=== PATIENT | female | born 1990 | race Caucasian/White ===

== ENCOUNTER 2020-10-16 08:59 | Day surgery (SDC) | payer MEDICAID ==
[~2020-10-16 08:59] MED LIST: Lactated Ringers 1,000 ML IV SCH; Lidocaine 1%/Sod Bicarbonate in NS 8.4% 1 ML Syringe IDERM PRN; Sodium Chloride 0.9% 10 ML Syringe FLUSH PRN
--- NOTE | 2020-10-16 09:41 | PCM.PREANE ---
Preanesthetic Assessment - Anesthesia/Transfusion/Family Hx Anesthesia History: Prior Anesthesia Without Reaction Family History of Anesthesia Reaction: No Transfusion History: No Prior Transfusion(s) - Review of Systems General: No Symptoms Pulmonary: No Symptoms Cardiovascular: Dyspnea on Exertion Gastrointestinal: Abdominal Pain (cramping) Neurological: No Symptoms Other: Reports: Neck Pain - Physical Assessment NPO Status Date: 10/15/20 NPO Status Time: 00:00 Height: 1.75 m Weight: 102.7 kg ASA Class: 3 Mental Status: Alert & Oriented x3 Airway Class: Mallampati = 2 Dentition: Reports: Edentulous Thyro-Mental Finger Breadths: 2 Mouth Opening Finger Breadths: 2 ROM/Head Extension: Full Lungs: Clear to Auscultation, Normal Respiratory Effort, Decreased Breath Sounds Cardiovascular: Regular Rate, Regular Rhythm - Lab Values: Laboratory Last Values WBC 7.13 K/mm3 (3.98-10.04) 10/16/20 09:13 RBC 4.69 M/mm3 (3.98-5.22) 10/16/20 09:13 Hgb 12.6 gm/dl (11.2-15.7) 10/16/20 09:13 Hct 39.2 % (34.1-44.9) 10/16/20 09:13 MCV 83.6 fl (79.4-94.8) 10/16/20 09:13 MCH 26.9 pg (25.6-32.2) 10/16/20 09:13 MCHC 32.1 g/dl (32.2-35.5) L 10/16/20 09:13 RDW Std Deviation 47.4 fL (36.4-46.3) H 10/16/20 09:13 Plt Count 313 K/mm3 (182-369) 10/16/20 09:13 MPV 12.0 fl (9.4-12.3) 10/16/20 09:13 Neut % (Auto) 59.4 % (34.0-71.1) 10/16/20 09:13 Lymph % (Auto) 32.1 % (19.3-51.7) 10/16/20 09:13 [place] % (Auto) 8.1 % (4.7-12.5) 10/16/20 09:13 Eos % (Auto) 0 (0.7-5.8) L 10/16/20 09:13 Baso % (Auto) 0.3 % (0.1-1.2) 10/16/20 09:13 Neut # (Auto) 4.23 K/mm3 (1.56-6.13) 10/16/20 09:13 Lymph # (Auto) 2.29 K/mm3 (1.18-3.74) 10/16/20 09:13 [place] # (Auto) 0.58 K/mm3 (0.24-0.36) H 10/16/20 09:13 Eos # (Auto) 0.00 K/mm3 (0.04-0.36) L 10/16/20 09:13 Baso # (Auto) 0.02 K/mm3 (0.01-0.08) 10/16/20 09:13 - Allergies Allergies/Adverse Reactions: Allergies Allergy/AdvReac Type Severity Reaction Status Date / Time codeine Allergy Vomiting Verified 10/15/20 16:42 nitrofurantoin Allergy Rash Verified 10/15/20 16:42 [From Macrobid] - Anesthesia Plan Pre-Op Medication Ordered: None - Acknowledgements Anesthesia Type Planned: General Anesthesia Pt an Appropriate Candidate for the Planned Anesthesia: Yes Alternatives and Risks of Anesthesia Discussed w Pt/Guardian: Yes Pt/Guardian Understands and Agrees with Anesthesia Plan: Yes PreAnesthesia Questionnaire HEENT History: Reports: None Cardiovascular History: Reports: None Respiratory History: Reports: None Gastrointestinal History: Reports: GERD, Irritable Bowel Syndrome 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: Renal Calculus, 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: , Other (See Below) Other OB/BYN History: menorrhagia, colposcopy Musculoskeletal History: Reports: None Neurological History: Reports: None Psychiatric History: Reports: Addiction, Depression, Panic Attack, PTSD Endocrine/Metabolic History: Reports: None Hematologic History: Reports: Anemia, Iron Deficiency Immunologic History: Reports: None Oncologic (Cancer) History: Reports: None Dermatologic History: Reports: Other (See Below) Other Dermatologic History: skin lesion - Past Surgical History Head Surgeries/Procedures: Reports: None HEENT Surgical History: Reports: None Cardiovascular Surgical History: Reports: None Respiratory Surgical History: Reports: None GI Surgical History: Reports: None Female Surgical History: Reports: Section, Tubal Ligation Endocrine Surgical History: Reports: None Neurological Surgical History: Reports: None Musculoskeletal Surgical History: Reports: None Oncologic Surgical History: Reports: None - SUBSTANCE USE Tobacco Use Status *Q: Current Every Day Tobacco User Tobacco Use Within Last Twelve Months: Cigarettes Second Hand Smoke Exposure: Yes Days Per Week of Alcohol Use: 1 Number of Drinks Per Day: 0 Total Drinks Per Week: 0 Recreational Drug Use History: No - HOME MEDS Home Medications: Home Meds ALPRAZolam [Xanax] 0.25 mg PO TID PRN 10/15/20 [History] OLANZapine [ZyPREXA] 5 mg PO BEDTIME 10/15/20 [History] Pantoprazole Sodium [Protonix] 40 mg PO DAILY 10/15/20 [History] Venlafaxine HCl [Venlafaxine HCl ER] 225 mg PO DAILY 10/15/20 [History] busPIRone [Buspar] 20 mg PO TID 10/15/20 [History] hydrOXYzine HCL [hydrOXYzine] 25 mg PO DAILY PRN 10/15/20 [History] - CURRENT (IN HOUSE) MEDS Current Meds: Current Medications Lactated Ringer's (Ringers, Lactated) 1,000 mls @ 125 mls/hr IV ASDIRECTED ZAHIDA Stop: 10/16/20 23:00 Lidocaine/Sodium Bicarbonate (Buffered Lidocaine 1% In Ns 8.4%) 0.25 ml IDERM ONETIME PRN PRN Reason: Prior to IV Start Stop: 10/16/20 18:00 Sodium Chloride (Saline Flush) 10 ml FLUSH ASDIRECTED PRN PRN Reason: Keep Vein Open Stop: 10/16/20 18:00
[2020-10-16] MEDS ORDERED: Lidocaine 1% with EPINEPHrine 1:100,000 20 ML MDV ONE (09:43)
[2020-10-16] MEDS ORDERED: Sodium Chloride 0.9% 50 ML SDV ONE (09:43)
[2020-10-16] MEDS ORDERED: Ondansetron 4 MG/2 ML SDV ONE (09:48)
[2020-10-16] MEDS ORDERED: Rocuronium 50 MG/5 ML Vial ONE (09:48)
[2020-10-16] MEDS ORDERED: Propofol 200 MG/20 ML SDV ONE (09:48)
[2020-10-16] MEDS ORDERED: Ketorolac 30 MG/ML SDV ONE (09:49)
[2020-10-16] MEDS ORDERED: Lidocaine 1% 4 ML ONE (09:49)
[2020-10-16] MEDS ORDERED: ceFAZolin 1 GM Vial ONE (09:49)
[2020-10-16] MEDS ORDERED: Midazolam 1 MG/ML 2 ML SDV ONE (09:49)
[2020-10-16] MEDS ORDERED: fentaNYL 250 MCG/5 ML SDV ONE (09:49)
[2020-10-16] MEDS ORDERED: Lactated Ringers 1,000 ML ONE (10:22)
[2020-10-16] MEDS ORDERED: HYDROmorphone 0.5 MG/0.5 ML Syringe ONE (10:27)
--- NOTE | 2020-10-16 10:55 | PCM.OPNOTE ---
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 SCS in place and functioning prior to surgery, 2 grams Ancef given IV. Time out performed confirming name, and procedure. Prepared with betadine solution and draped in sterile fashion. Cervix normal appearing, no change with acetic acid, or Lugol's solution. 0 vicryl sutured placed at 0900 and 0300. Injected lidocaine 0.25 % with epi multiple confluent areas, 8 ml. LEEP performed (conization) and specimen marked with suture at 1200. ECC performed and all tisue sent to pathology. Electrocoagulation of LEEP site completed.Counts correct and patient transported to PACU in satisfactory condition.
[2020-10-16] MEDS ORDERED: fentaNYL 100 MCG/2 ML SDV IVPUSH PRN (10:57)
--- NOTE | 2020-10-16 10:58 | PCM.POSTAN ---
POST ANESTHESIA ASSESSMENT - MENTAL STATUS Mental Status: Alert, Oriented - VITAL SIGNS Vital Signs: Last Vital Signs Temp 36.8 C 10/16/20 09:10 Pulse 96 10/16/20 09:10 Resp 16 10/16/20 09:10 BP 123/73 10/16/20 09:10 Pulse Ox 100 10/16/20 09:10 - RESPIRATORY Respiratory Status: Respiratory Rate WNL, Airway Patent, O2 Saturation Stable - CARDIOVASCULAR CV Status: Pulse Rate WNL, Blood Pressure Stable - GASTROINTESTINAL GI Status: No Symptoms - PAIN Pain Score: 0 - POST OP HYDRATION Hydration Status: Adequate & Stable - OBSERVATIONS Free Text/Narrative:: no anesthesia complications noted
--- NOTE | 2020-10-16 11:47 | PCM48HPAN ---
Post Anesthesia Note - EVALUATION WITHIN 48HRS OF ANESTHETIC Vital Signs in Normal Range: Yes Patient Participated in Evaluation: Yes Respiratory Function Stable: Yes Airway Patent: Yes Cardiovascular Function Stable: Yes Hydration Status Stable: Yes Pain Control Satisfactory: Yes Nausea and Vomiting Control Satisfactory: Yes Mental Status Recovered: Yes Vital Signs: Last Vital Signs Temp 36.4 C 10/16/20 11:35 Pulse 82 10/16/20 11:35 Resp 14 10/16/20 11:35 BP 106/52 L 10/16/20 11:35 Pulse Ox 96 10/16/20 11:35 - COMMENTS/OBSERVATIONS Free Text/Narrative:: no anesthesia complications noted
== END 2020-10-16 12:00 | disposition home or self-care (01) ==
LOC: JD.SDS 08:59
PROVIDERS: ATTEND Obstetrics & Gynecology
DX: D06.0 Carcinoma in situ of endocervix (principal); D50.9 Iron deficiency anemia, unspecified; A64 Unspecified sexually transmitted disease; F17.210 Nicotine dependence, cigarettes, uncomplicated; Z98.890 Other specified postprocedural states; Z79.899 Other long term (current) drug therapy; Z88.5 Allergy status to narcotic agent; Z88.8 Allergy status to other drugs, medicaments and biological substances
CPT/HCPCS: 36415; 57522; 84703; 85025; 88305; 88307; J0690; J1170; J1885; J2250; J2405; J2704; J2710; J3010; J7120; 00940

== ENCOUNTER 2020-12-04 07:32 | Inpatient (IN) | payer MEDICAID ==
[2020-12-04] MEDS ORDERED: Midazolam 1 MG/ML 2 ML SDV ONE (08:18)
[2020-12-04] MEDS ORDERED: Rocuronium 50 MG/5 ML Vial ONE (08:18)
[2020-12-04] MEDS ORDERED: fentaNYL 250 MCG/5 ML SDV ONE (08:18)
[2020-12-04] MEDS ORDERED: Ondansetron 4 MG/2 ML SDV ONE (08:18)
[2020-12-04] MEDS ORDERED: Propofol 200 MG/20 ML SDV ONE ×4 (08:18→10:10)
[2020-12-04] MEDS ORDERED: Ketorolac 30 MG/ML SDV ONE (08:19)
[2020-12-04] MEDS ORDERED: Lidocaine 1% 4 ML ONE (08:19)
[2020-12-04] MEDS ORDERED: Lidocaine 1% with EPINEPHrine 1:100,000 10 ML MDV ONE (08:23)
[2020-12-04] MEDS ORDERED: Sodium Chloride 0.9% 50 ML SDV ONE (08:23)
[2020-12-04] MEDS ORDERED: Bupivacaine 0.5% 30 ML SDV ONE (08:23)
--- NOTE | 2020-12-04 08:32 | PCM.PREANE ---
Preanesthetic Assessment - Procedure Proposed Procedure: Total Abdominal Hysterectomy - Anesthesia/Transfusion/Family Hx Anesthesia History: Prior Anesthesia Without Reaction Family History of Anesthesia Reaction: No Transfusion History: No Prior Transfusion(s) - Review of Systems General: No Symptoms Pulmonary: Other (Smoker 1-2 packs per day, denies cough, SOB. Marijuana use 3 times per day. ) Cardiovascular: No Symptoms Gastrointestinal: Other (GERD ) Neurological: Pre-Existing Deficit, Difficulty Walking (Chronic low back pain 02/11 today. ) Other: Reports: None (Obesity, BMI 35. ) - Physical Assessment NPO Status Date: 12/03/20 NPO Status Time: 18:00 Weight: 104 kg ASA Class: 3 Mental Status: Alert & Oriented x3 Airway Class: Mallampati = 3 Dentition: Reports: Dentures Thyro-Mental Finger Breadths: 3 Mouth Opening Finger Breadths: 3 ROM/Head Extension: Full Lungs: Clear to Auscultation, Normal Respiratory Effort, Decreased Breath Sounds (Bilateral Bases) Cardiovascular: Regular Rate, Regular Rhythm - Lab Values: Laboratory Last Values Urine HCG, Qual Negative (NEGATIVE) 12/04/20 07:30 - Allergies Allergies/Adverse Reactions: Allergies Allergy/AdvReac Type Severity Reaction Status Date / Time codeine Allergy Vomiting Verified 12/03/20 09:07 nitrofurantoin Allergy Rash Verified 12/03/20 09:07 [From Macrobid] - Anesthesia Plan Pre-Op Medication Ordered: Anxiolytic - Acknowledgements Anesthesia Type Planned: Spinal Pt an Appropriate Candidate for the Planned Anesthesia: Yes Alternatives and Risks of Anesthesia Discussed w Pt/Guardian: Yes Pt/Guardian Understands and Agrees with Anesthesia Plan: Yes PreAnesthesia Questionnaire HEENT History: Reports: None Cardiovascular History: Reports: None Respiratory History: Reports: None Gastrointestinal History: Reports: GERD, Irritable Bowel Syndrome 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: Renal Calculus, 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: , Other (See Below) Other OB/BYN History: menorrhagia, colposcopy Musculoskeletal History: Reports: None Neurological History: Reports: None Psychiatric History: Reports: Addiction, Depression, Panic Attack, PTSD Endocrine/Metabolic History: Reports: None Hematologic History: Reports: Anemia, Iron Deficiency Immunologic History: Reports: None Oncologic (Cancer) History: Reports: None Dermatologic History: Reports: Other (See Below) Other Dermatologic History: skin lesion - Infectious Disease History Infectious Disease History: Reports: None - Past Surgical History Head Surgeries/Procedures: Reports: None HEENT Surgical History: Reports: None Cardiovascular Surgical History: Reports: None Respiratory Surgical History: Reports: None GI Surgical History: Reports: None Female Surgical History: Reports: Section, LEEP, Tubal Ligation Endocrine Surgical History: Reports: None Neurological Surgical History: Reports: None Musculoskeletal Surgical History: Reports: None Oncologic Surgical History: Reports: None - SUBSTANCE USE Tobacco Use Status *Q: Current Every Day Tobacco User Recreational Drug Use History: Yes Recreational Drug Type: Reports: Marijuana/Hashish - HOME MEDS Home Medications: Home Meds Pantoprazole Sodium [Protonix] 40 mg PO DAILY 10/15/20 [History] - CURRENT (IN HOUSE) MEDS Current Meds: Current Medications Lactated Ringer's (Ringers, Lactated) 1,000 mls @ 125 mls/hr IV ASDIRECTED ZAHIDA Stop: 12/04/20 23:00 Lidocaine/Sodium Bicarbonate (Lidocaine 1%/Sod Bicarbonate In Ns 8.4% 1 Ml Syringe) 0.25 ml IDERM ONETIME PRN PRN Reason: Prior to IV Start Stop: 12/04/20 18:00 Sodium Chloride (Sodium Chloride 0.9% 10 Ml Syringe) 10 ml FLUSH ASDIRECTED PRN PRN Reason: Keep Vein Open Stop: 12/04/20 18:00
[2020-12-04] MEDS ORDERED: ceFAZolin 1 GM Vial ONE (08:45)
[2020-12-04] MEDS ORDERED: Morphine PF 10 MG/10 ML SDV ONE (08:47)
[2020-12-04] MEDS ORDERED: Albuterol 0.083% 2.5 MG/3 ML Neb Soln NEB ONE (09:00)
--- NOTE | 2020-12-04 10:45 | PCM.POSTAN ---
POST ANESTHESIA ASSESSMENT - MENTAL STATUS Mental Status: Alert, Oriented - VITAL SIGNS Vital Signs: Last Vital Signs Temp 36.4 C 12/04/20 07:50 Pulse 75 12/04/20 07:50 Resp 18 12/04/20 07:50 BP 107/70 12/04/20 07:50 Pulse Ox 98 12/04/20 08:46 - RESPIRATORY Respiratory Status: Respiratory Rate WNL, Airway Patent, O2 Saturation Stable - CARDIOVASCULAR CV Status: Pulse Rate WNL, Blood Pressure Stable - GASTROINTESTINAL GI Status: No Symptoms - PAIN Pain Score: 1 - POST OP HYDRATION Hydration Status: Adequate & Stable - OBSERVATIONS Free Text/Narrative:: NO ANESTHESIA COMPLICATIONS NOTED
--- NOTE | 2020-12-04 10:46 | PCM.OPNOTE ---
- General Post-Op/Procedure Note Date of Surgery/Procedure: 12/04/20 Operative Procedure(s): Total abdominal hysterectomy bilateral salpingectomy (neither ovary removed) Pre Op Diagnosis: SHANE-3severe dysplasia, menorrhagia Post-Op Diagnosis: Same plus polycystic ovaries bilaterally. (Patient smokes ovaries left to have her own hormones rather than no hormone replacement therapy because of smoking) Anesthesia Technique: Spinal Primary Surgeon: Mauricio Chen Secondary Surgeon: Israel Watkins Anesthesia Provider: Rolly Kamara Screw Machine Set Up Operator: Bonnie White (MS4) Reason Screw Machine Set Up Operator Was Necessary: Retraction assist in surgery decrease comorbidity and mortality Role of Screw Machine Set Up Operator: Retraction assist in surgery decrease comorbidity and mortality Fluid Replacement, Intraop: 1,800 Output, Urine Amount: 350 EBL in mLs: 50 Drain/Tube Comments:: Garcia Complications: None Condition: Good Free Text/Narrative:: Patient was transported to operating room placed under spinal anesthesia in the supine position. The days in place and functioning prior to surgery. Ancef 2 g given intravenously prior to surgery. I had examined the patient prior to anesthesia and with patient and 's consent plan to proceed with total abdominal hysterectomy bilateral salpingectomy because of the lack of descent of the uterus and cervix because of 4 previous C-sections and suspected scar tissue. Out was performed after patient was prepared and draped in a sterile fashion. Garcia catheter had been placed to gravity drainage. The area of this planned incision was marked and injecting 20 mL of 0.5% Marcaine without epinephrine in the area of the planned incision. The Pfannenstiel incision was made carried sharp section to and through the anterior fascia. The peritoneal cavity was entered without difficulty. Utilizing the Mark medium retractor to assist in retraction of the skin and opening of the incision placed without difficulty. The bowel was packed away and utilizing a wide malleable retractor to hold the packing in bilateral the way the surgery procedure. Enseal was utilized to crossclamping the salpinx on the right side the right fallopian tube was removed same procedure was carried out on the left side. Both ovaries appeared polycystic but otherwise normal they were not removed. (Patient is a smoker and would not be candidate for hormone replacement therapy) feeding in a pedicle fashion crossclamping with the Enseal activating and incising proceeding caudad bilaterally until reflection of the vagina at the cervix was approximated. Crossclamped bilaterally with curved Arnaldo clamps. Incising and removing the cervix and uterus intact. Vaginal cuff was closed at each angle with 0 Monocryl Arnaldo fixation suture and central portion of the vagina was closed with [id number] suture 0 Monocryl. Irrigation was carried out with 500 mL of saline and 200 mL of distilled water to follow no bleeding was seen sponge needle pack instrument count correct x2 and the abdominal cavity was closed with #1 PDS for the anterior fascia tenuous tissue was closed with 3 interrupted sutures of 0 Monocryl. The skin was closed with 3-0 Monocryl on a Seth needle. Dermabond Prineo applied. Patient transported to postanesthesia care unit in satisfactory condition. I spoke with the and all questions answered to his voiced satisfaction. Patient will stay overnight because of the abdominal hysterectomy. Roland is new home sales consultant and aware of the patient being in the hospital, he assisted with the surgery.
[2020-12-04] MEDS: fentaNYL 100 MCG/2 ML SDV IVPUSH PRN ×2 (11:10→11:29)
[2020-12-04] MEDS ORDERED: Acetaminophen 325 MG Tab PO PRN (11:58)
[2020-12-04] MEDS ORDERED: traMADol 50 MG Tab PO PRN (11:58)
[2020-12-04] MEDS ORDERED: Ondansetron 4 MG/2 ML SDV IVPUSH PRN (11:58)
[2020-12-04] MEDS ORDERED: Acetaminophen/oxyCODONE 325-5 MG Tab PO PRN (12:36)
[2020-12-04] MEDS: Acetaminophen/oxyCODONE 325-5 MG Tab PO PRN ×2 (13:07→18:43)
[2020-12-04] MEDS: Ibuprofen 600 MG Tab PO PRN ×2 (15:28→21:45)
[2020-12-04] MEDS ORDERED: Ketorolac 30 MG/ML SDV IVPUSH PRN (16:20)
[2020-12-04] MEDS ORDERED: Pantoprazole 40 MG Tab.CR PO SCH (18:00)
[2020-12-04] MEDS: Docusate Sodium 100 MG Cap PO SCH (21:44)
[2020-12-05] MEDS: Acetaminophen/oxyCODONE 325-5 MG Tab PO PRN (03:48)
[2020-12-05] MEDS: Docusate Sodium 100 MG Cap PO SCH (08:02)
--- NOTE | 2020-12-05 08:07 | PCM.DCSUM1 ---
Discharge Summary - Hospital Course Free Text/Narrative:: Debo is a 30-year-old multigravida female who was admitted on the a.m. of 12/04/2020 with a diagnosis of SHANE-3 (severe dysplasia of the cervix) and menorrhagia. She underwent preoperative evaluation and then surgery consisting of a total abdominal hysterectomy with bilateral salpingectomy. Please see operative report for details. Postoperatively patient has done well. Her vital signs been stable, she has been afebrile. Intake and output has been excellent. She is ambulating well. Her Only Concern Has Been That She Has Wanted to Smoke As she has a nicotine addiction smoking 1 to 2 packs of cigarettes per day. She did have some agitation related to this. At 1 point she was threatening to leave AMA because of this. She at this time has stayed overnight, is doing well and is desiring discharge at this time. Follow-up CBC shows a white count of 9.36, hemoglobin 11.2 and platelets of 200,000. Assessment: 1. Postoperative day #1status post total abdominal hysterectomy with bilateral salpingectomy done for SHANE-3 and menorrhagia. 2. Nicotine addiction Plan: Discharge home. Diagnosis: Stroke: No - Discharge Data Discharge Date: 12/05/20 Discharge Disposition: Home, Self-Care 01 Condition: Good - Referral to Home Health Primary Care Physician: PCP None - Patient Summary/Data Operative Procedure(s) Performed: Total abdominal hysterectomy bilateral salpingectomy (neither ovary removed) - Patient Instructions Diet: Regular Diet as Tolerated Activity: As Tolerated (No intercourse or tampons until seen back. No lifting greater than 15 pounds or driving a car x7 days.) Driving: Do Not Drive Showering/Bathing: May Shower Wound/Incision Care: Keep Operative Site/Wound Site Clean and Dry Notify Provider of: Fever, Increased Pain, Swelling and Redness, Nausea and/or Vomiting - Discharge Plan Home Medications: Home Meds Pantoprazole Sodium [Protonix] 40 mg PO DAILY 10/15/20 [History] Acetaminophen/oxyCODONE [Percocet 325-5 MG] 2 tab PO Q4H PRN tablet 12/05/20 [Rx] Ibuprofen [Motrin] 600 mg PO Q6H PRN tablet 12/05/20 [Rx] Referrals: Mauricio Chen MD [Physician] - (Patient to call make an appointment with Dr. Chen.) - Discharge Summary/Plan Comment DC Time >30 min.: No Discharge Summary/Plan Comment: Discharge instructions: 1. Discharge home 2. Diet, activity and follow-up discussed with patient. Recommend nursing diet with increased calories and calcium. 3. Precautions given concern increased pain, bleeding, temperature, signs/symptoms of DVT/PE. 4. Medications per home medication was printed, discussed with and given to the patient. 5. Return to clinic-Dr. Chen[facility] [place] in 2 weeks. Diagnosis: 1. History of SHANE-3 and menorrhagiastatus post total abdominal hysterectomy on 12/04/2020 with normal recovery. Condition: Good - Patient Data Vitals - Most Recent: Last Vital Signs Temp 37.1 C 12/05/20 04:02 Pulse 66 12/05/20 03:41 Resp 15 12/05/20 04:02 BP 122/70 12/05/20 03:41 Pulse Ox 97 12/05/20 03:41 Weight - Most Recent: 106.141 kg I&O - Last 24 hours: Intake & Output 12/04/20 12/05/20 12/05/20 22:59 06:59 14:59 Intake Total 800 Output Total 150 450 Balance -150 350 Lab Results - Last 24 hrs: Laboratory Results - last 24 hr 12/04/20 12/04/20 12/05/20 Range/Units 08:15 08:15 06:33 WBC 7.39 9.36 (3.98-10.04) K/mm3 RBC 4.31 4.07 (3.98-5.22) M/mm3 Hgb 11.8 11.2 (11.2-15.7) gm/dl Hct 36.5 34.9 (34.1-44.9) % MCV 84.7 85.7 (79.4-94.8) fl MCH 27.4 27.5 (25.6-32.2) pg MCHC 32.3 32.1 L (32.2-35.5) g/dl RDW Std Deviation 56.4 H 56.9 H (36.4-46.3) fL Plt Count 215 D 200 (182-369) K/mm3 MPV 12.7 H 12.8 H (9.4-12.3) fl Neut % (Auto) 60.8 71.5 H (34.0-71.1) % Lymph % (Auto) 29.8 18.3 L (19.3-51.7) % [place] % (Auto) 8.4 9.3 (4.7-12.5) % Eos % (Auto) 0.5 L 0.5 L (0.7-5.8) Baso % (Auto) 0.4 0.3 (0.1-1.2) % Neut # (Auto) 4.49 6.69 H (1.56-6.13) K/mm3 Lymph # (Auto) 2.20 1.71 (1.18-3.74) K/mm3 [place] # (Auto) 0.62 H 0.87 H (0.24-0.36) K/mm3 Eos # (Auto) 0.04 0.05 (0.04-0.36) K/mm3 Baso # (Auto) 0.03 0.03 (0.01-0.08) K/mm3 Blood Type A POSITIVE Gel Antibody Screen Negative Med Orders - Current: Current Medications Acetaminophen (Acetaminophen 325 Mg Tab) 650 mg PO Q6H PRN PRN Reason: Pain Docusate Sodium (Docusate Sodium 100 Mg Cap) 100 mg PO BID ZAHIDA Last Admin: 12/04/20 21:44 Dose: 100 mg Documented by: Ibuprofen (Ibuprofen 600 Mg Tab) 600 mg PO Q6H PRN PRN Reason: Pain (mild 1-3) Last Admin: 12/04/20 21:45 Dose: 600 mg Documented by: Ketorolac Tromethamine (Ketorolac 30 Mg/Ml Sdv) 30 mg IVPUSH Q8H PRN PRN Reason: Pain (moderate 4-6) Ondansetron HCl (Ondansetron 4 Mg/2 Ml Sdv) 4 mg IVPUSH Q6H PRN PRN Reason: Nausea/Vomiting Oxycodone/Acetaminophen (Acetaminophen/Oxycodone 325-5 Mg Tab) 1 tab PO Q4H PRN PRN Reason: Pain (moderate 4-6) Oxycodone/Acetaminophen (Acetaminophen/Oxycodone 325-5 Mg Tab) 2 tab PO Q4H PRN PRN Reason: Pain (severe 7-10) Last Admin: 12/05/20 03:48 Dose: 2 tab Documented by: Pantoprazole Sodium (Pantoprazole 40 Mg Tab.Cr) 40 mg PO QPM ZAHIDA Last Admin: 12/04/20 18:41 Dose: 40 mg Documented by: Tramadol HCl (Tramadol 50 Mg Tab) 50 mg PO Q6H PRN PRN Reason: Pain Last Admin: 12/04/20 12:04 Dose: 50 mg Documented by: Discontinued Medications Albuterol (Albuterol 0.083% 2.5 Mg/3 Ml Neb Soln) 2.5 mg NEB ONETIME ONE Stop: 12/04/20 09:01 Last Admin: 12/04/20 08:46 Dose: 2.5 mg Documented by: Bupivacaine HCl (Bupivacaine 0.5% 30 Ml Sdv) Confirm Administered Dose 30 ml .ROUTE .STK-MED ONE Stop: 12/04/20 08:24 Last Admin: 12/04/20 09:37 Dose: 10 ml Documented by: Cefazolin Sodium (Cefazolin 1 Gm Vial) Confirm Administered Dose 2 gm .ROUTE .STK-MED ONE Stop: 12/04/20 08:46 Fentanyl (Fentanyl 250 Mcg/5 Ml Sdv) Confirm Administered Dose 250 mcg .ROUTE .STK-MED ONE Stop: 12/04/20 08:19 Fentanyl (Fentanyl 100 Mcg/2 Ml Sdv) 50 mcg IVPUSH Q5M PRN PRN Reason: Pain Stop: 12/04/20 13:00 Last Admin: 12/04/20 11:29 Dose: 50 mcg Documented by: Lactated Ringer's (Ringers, Lactated) 1,000 mls @ 125 mls/hr IV ASDIRECTED [facility] Stop: 12/04/20 23:00 Last Admin: 12/04/20 07:50 Dose: 125 mls/hr Documented by: Lidocaine HCl (Xylocaine-Mpf 1%) Confirm Administered Dose 4 mls @ as directed .ROUTE .STK-MED ONE Stop: 12/04/20 08:20 Ketorolac Tromethamine (Ketorolac 30 Mg/Ml Sdv) Confirm Administered Dose 30 mg .ROUTE .STK-MED ONE Stop: 12/04/20 08:20 Lidocaine/Epinephrine (Lidocaine 1% With Epinephrine 1:100,000 10 Ml Mdv) Confirm Administered Dose 20 ml .ROUTE .STK-MED ONE Stop: 12/04/20 08:24 Lidocaine/Sodium Bicarbonate (Lidocaine 1%/Sod Bicarbonate In Ns 8.4% 1 Ml Syringe) 0.25 ml IDERM ONETIME PRN PRN Reason: Prior to IV Start Stop: 12/04/20 18:00 Last Admin: 12/04/20 07:50 Dose: 0.25 ml Documented by: Midazolam HCl (Midazolam 1 Mg/Ml 2 Ml Sdv) Confirm Administered Dose 2 mg .ROUTE .STK-MED ONE Stop: 12/04/20 08:19 Morphine Sulfate (Morphine Pf 10 Mg/10 Ml Sdv) Confirm Administered Dose 10 mg .ROUTE .STK-MED ONE Stop: 12/04/20 08:48 Ondansetron HCl (Ondansetron 4 Mg/2 Ml Sdv) Confirm Administered Dose 4 mg .ROUTE .STK-MED ONE Stop: 12/04/20 08:19 Propofol (Propofol 200 Mg/20 Ml Sdv) Confirm Administered Dose 200 mg .ROUTE .STK-MED ONE Stop: 12/04/20 08:19 Propofol (Propofol 200 Mg/20 Ml Sdv) Confirm Administered Dose 200 mg .ROUTE .STK-MED ONE Stop: 12/04/20 09:38 Propofol (Propofol 200 Mg/20 Ml Sdv) Confirm Administered Dose 200 mg .ROUTE .STK-MED ONE Stop: 12/04/20 09:54 Propofol (Propofol 200 Mg/20 Ml Sdv) Confirm Administered Dose 200 mg .ROUTE .STK-MED ONE Stop: 12/04/20 10:11 Rocuronium [place] (Rocuronium 50 Mg/5 Ml Vial) Confirm Administered Dose 0 mg .ROUTE .STK-MED ONE Stop: 12/04/20 08:19 Sodium Chloride (Sodium Chloride 0.9% 10 Ml Syringe) 10 ml FLUSH ASDIRECTED PRN PRN Reason: Keep Vein Open Stop: 12/04/20 18:00 Sodium Chloride (Sodium Chloride 0.9% 50 Ml Sdv) Confirm Administered Dose 50 ml .ROUTE .STK-MED ONE Stop: 12/04/20 08:24
[2020-12-05] MEDS: Ibuprofen 600 MG Tab PO PRN (08:56)
--- NOTE | 2020-12-05 12:08 | PCM48HPAN ---
Post Anesthesia Note - EVALUATION WITHIN 48HRS OF ANESTHETIC Vital Signs in Normal Range: Yes Patient Participated in Evaluation: Yes Respiratory Function Stable: Yes Airway Patent: Yes Cardiovascular Function Stable: Yes Hydration Status Stable: Yes Pain Control Satisfactory: Yes Nausea and Vomiting Control Satisfactory: Yes Mental Status Recovered: Yes Vital Signs: Last Vital Signs Temp 98.6 F 12/05/20 09:07 Pulse 74 12/05/20 07:53 Resp 16 12/05/20 09:07 BP 117/71 12/05/20 07:53 Pulse Ox 100 12/05/20 07:53 - COMMENTS/OBSERVATIONS Free Text/Narrative:: The patient has left the hospital earlier than we could perform the post- anesthesia follow up. Per RN the patient had pain under control and insisted on early discharge .
== END 2020-12-05 09:00 | disposition home or self-care (01) | DRG 741 ==
LOC: JD.SDS 07:32 → JD.OB 10:46
PROVIDERS: ADMIT Obstetrics & Gynecology; ATTEND Obstetrics & Gynecology
PROC: 0UT90ZZ Resection of Uterus, Open Approach (ICD-10-PCS; principal; 2020-12-04)
PROC: 0UT70ZZ Resection of Bilateral Fallopian Tubes, Open Approach (ICD-10-PCS; 2020-12-04)
DX: D06.9 Carcinoma in situ of cervix, unspecified (principal); N92.0 Excessive and frequent menstruation with regular cycle; F17.210 Nicotine dependence, cigarettes, uncomplicated; E28.2 Polycystic ovarian syndrome; Z79.899 Other long term (current) drug therapy
CPT/HCPCS: 00840; 36415; 81025; 85025; 86850; 86900; 86901; 94640; A9270-GY; J0690; J1885; J2250; J2270; J2405; J2704; J3010; J3490; J7120

== ENCOUNTER 2022-01-24 09:19 | Emergency (ER) | payer MEDICAID ==
[2022-01-24] MEDS ORDERED: Dextrose 5%-0.9% NaCl 1,000 ML IV SCH (09:45)
== END 2022-01-24 11:16 | disposition home or self-care (01) ==
LOC: JD.ED 09:19
DX: R00.2 Palpitations (principal); Z88.5 Allergy status to narcotic agent; Z88.1 Allergy status to other antibiotic agents
CPT/HCPCS: 36415; 71045; 80053; 83735; 83880; 84443; 85025; 86140; 93005; 93225; 93226; 96360; 99285; J7042